=== PATIENT | male | born 2000 | race Caucasian/White ===

== ENCOUNTER 2020-03-17 07:59 | Outpatient (CLI) | payer SELFPAY | END 2020-03-17 08:00 | disposition home or self-care (01) | LOC: WOUND 08:08 | PROVIDERS: Visit Provider Nurse Practitioner Family | DX: T23.251A Burn of second degree of right palm, initial encounter (principal); X08.8XXA Exposure to other specified smoke, fire and flames, initial encounter | CPT/HCPCS: 11042; 87070; 87077; 87176; 87186; 87205; G0463 ==

== ENCOUNTER 2020-03-24 08:26 | Outpatient (CLI) | payer SELFPAY | END 2020-03-24 08:27 | disposition home or self-care (01) | LOC: WOUND 08:27 | PROVIDERS: Visit Provider Nurse Practitioner Family | DX: T23.351A Burn of third degree of right palm, initial encounter (principal); X08.8XXA Exposure to other specified smoke, fire and flames, initial encounter; Y93.89 Activity, other specified | CPT/HCPCS: 11042 ==

== ENCOUNTER 2020-03-31 08:45 | Outpatient (CLI) | payer SELFPAY | END 2020-03-31 08:46 | disposition home or self-care (01) | LOC: WOUND 08:47 | PROVIDERS: Visit Provider Nurse Practitioner Family | DX: Z09 Encounter for follow-up examination after completed treatment for conditions other than malignant neoplasm (principal) | CPT/HCPCS: 99212 ==

== ENCOUNTER 2024-01-25 02:35 | Emergency (ER) | payer OTHER, SELFPAY ==
[2024-01-25 02:42] VITALS: BP 126/88; PULSE 71; RESP 20; TEMP 36.6; O2SAT 98; BMI 20.5
[2024-01-25 02:57] VITALS: BP 126/88; PULSE 80; RESP 18; O2SAT 98
--- NOTE | 2024-01-25 02:57 | XRR_ITS ---
PROCEDURE INFORMATION: Exam: XR Chest Exam date and time: 01/25/2024 3:06 AM Age: 23 years old Clinical indication: Patient HX: C/O anterior chest wall pain; Additional info: Rib pain TECHNIQUE: Imaging protocol: Radiologic exam of the chest. Views: 1 view. COMPARISON: No relevant prior studies available. FINDINGS: Lungs: No consolidation. Pleural spaces: No sizable pleural effusion or pneumothorax. Heart/Mediastinum: No cardiomegaly. Bones/joints: Unremarkable. XR/XR chest 1V portable [id number] IMPRESSION: No acute intrathoracic findings.
--- NOTE | 2024-01-25 03:57 | ED_ITS ---
HPI - Chest Pain General: Chief Complaint: Chest Pain Stated Complaint: Chest Pains Time Seen by Provider: 01/25/24 02:57 History of Present Illness: 23-year-old male presents emergency depa rtment stating that he has burning type chest pain that started last night. He states he also felt like his heart was beating very fast. He does appear to be very anxious upon presentation to the emergency department. He states he drinks multiple energy drinks throughout the day to stay awake. And that he also smokes marijuana. He does endorse an intermittent dry cough. He does not appear to be short of breath. He states his chest discomfort is mostly lateral to the mediastinum bilaterally. Review of Systems General: Reports: 10 or more systems reviewed and unremarkable except in HPI and below Card: Reports: chest pain Resp: Reports: non-productive cough COUNT INCLUDES THE [facility] ED PFSH: Medical History (Updated 01/25/24 @ 04:14 by Fernando Cobb MD) Psychiatric care Social History (Updated 03/14/20 @ 16:00 by Michela North LPN) Smoking and tobacco/nicotine status: former use of tobacco/nicotine Physical Exam Narrative: EXAM NARRATIVE: General: Alert, no acute distress. Skin: Warm, dry, Intact. Head: Normocephalic, atraumatic. Neck: Supple, trachea midline. Eye: Extraocular movements are intact. PERRLA Ears, nose, mouth and throat: mucosa moist. Cardiovascular: Regular, Normal peripheral perfusion. Respiratory: Bronchovesicular breath sounds, respirations are non-labored, breath sounds are equal, Symmetrical chest wall expansion. Gastrointestinal: Soft, Nontender, Non distended, Normal bowel sounds. Musculoskeletal: Normal ROM, no deformity. Neurological: Alert and oriented, No focal neurological deficit observed. Psychiatric: Cooperative, appropriate mood & affect. Course Vital Signs: Vital signs: Vital Signs Temperature 97.9 F 01/25/24 02:42 Pulse Rate 80 01/25/24 02:57 Respiratory Rate 18 01/25/24 02:57 Blood Pressure 126/88 01/25/24 02:57 Pulse Oximetry 98 01/25/24 02:57 Oxygen Delivery Me thod Room Air 01/25/24 02:57 MDM - Chest Pain Medical Decision Making Physical exam completed and documented I did obtain a chest x-ray as well as a twelve-lead EKG. Had extensive discussion with the patient regarding his marijuana usage. Did advise him that the smoke from the marijuana cigarettes that he is smoking could easily irritate his lung and causes bronchitis. I also advised the patient that the energy drinks that he is drinking a very unhealthy and can cause him to be very anxious and appear to be short of breath. I will discharge patient home and recommend he follow-up with his primary care provider Differential diagnosis includes bronchitis, pneumonia, anxiety, Medical Records I reviewed the patient's medical records. All radiology interpretation(s) finalized by discharge EKG Data EKG 1: Interpretation: Twelve-lead EKG obtained at 0 243 and reviewed at 0 245 demonstrates sinus rhythm with sinus arrhythmia. Ventricular rate 74, NE interval 147, QRS duration 94, QT 350, QTc [address] elevation or depression to demonstrate acute ischemia or infarction at present. Discharge Plan Discharge Patient Disposition: Home Clinical Impression: Atypical chest pain Acute bronchitis Qualifiers: Bronchitis organism: unspecified organism Qualified Code(s): J20.9 - Acute bronchitis, unspecified Condition: Stable Prescriptions: New prednisone 20 mg tablet 20 mg PO DAILY 5 Days Qty: 5 0RF No Action No Known Home Medications sulfamethoxazole-trimethoprim [Bactrim] 400-80 mg tablet 1 tab PO BID 7 Days Qty: 14 0RF Discharge Orders: Discharge ED (Routine); Ordered 01/25/24 Ordered By: Fernando Cobb Discharge Diet: Usual diet Discharge Activity: Resume usual activity Patient Instructions: Opioid Safety, Pain Management Activity Restrictions/Additional Instructions: Activity Restrictions/Additional Instructions: Thank you for choosing [facility] for your healthcare needs today. Please realize that you were seen in the Emergency Department and that we are providing you with an emergency medical screening exam and this may not be a complete and all inclusive of all the testing and or medical work-up that you may need to determine your ailment or severity of your illness. It is very important that you follow-up as instructed with your Primary care provider or Specialist for additional evaluation and to discuss your medical treatment plan. Coding Level of Care Code ED Professor Of Historical Theology for Sam Oropeza
[2024-01-25 04:33] VITALS: BP 101/83; PULSE 82; RESP 16; O2SAT 100
== END 2024-01-25 04:30 | disposition home or self-care (01) ==
PROVIDERS: Emergency Provider Internal Medicine
DX: R07.89 Other chest pain (principal); J20.9 Acute bronchitis, unspecified; Z87.891 Personal history of nicotine dependence
CPT/HCPCS: 71045; 99283

== ENCOUNTER 2024-02-07 10:01 | Emergency (ER) | payer OTHER, SELFPAY ==
[2024-02-07 10:08] VITALS: BP 111/67; PULSE 69; RESP 17; TEMP 36.6; O2SAT 98; BMI 22.0
--- NOTE | 2024-02-07 10:28 | XR_ITS ---
WS: [id number] XR chest 2V* [id number] REASON FOR EXAM: chest pain FINDINGS: The heart and the mediastinum are within normal limits. Calcified granulomas disease in both hemithoraces. No acute pulmonary parenchymal or pleural abnormality is noted. Bony thorax intact without significant abnormality. XR/XR chest 2V* [id number] IMPRESSION: No acute chest abnormality.
--- NOTE | 2024-02-07 11:25 | ED_ITS ---
HPI - Chest Pain General: Chief Complaint: Chest Pain Stated Complaint: CP Time Seen by Provider: 02/07/24 11:22 History of Present Illness: 23-year-[facility]. This is been present for couple weeks now and intermittent. He had been seen in the emergency room for it almost 2 weeks ago and had taken some steroid which helped for couple days but then it came back. Hurts with palpation, movement and deep breathing. Thinks it might just be related to his work. No cough. No fevers. No shortness of breath. No nausea or vomiting. No abdominal pain. Review of Systems Narrative: Constitutional symptoms: Negative except as documented in HPI. Skin symptoms: Negative except as documented in HPI. Eye symptoms: Negative except as documented in HPI. ENMT symptoms: Negative except as documented in HPI. Respiratory symptoms: Negative except as documented in HPI. Cardiovascular symptoms: Negative except as documented in HPI. Gastrointestinal symptoms: Negative except as documented in HPI. Genitourinary symptoms: Negative except as documented in HPI. Musculoskeletal symptoms: Negative except as documented in HPI. Neurologic symptoms: Negative except as documented in HPI. Psychiatric symptoms: Negative except as documented in HPI. Endocrine symptoms: Negative except as documented in HPI. [facility] ED PFSH: Medical History (Updated 02/07/24 @ 11:28 by Malia Pruitt MD) Psychiatric care Social History (Updated 03/14/20 @ 16:00 by Michela North LPN) Smoking and tobacco/nicotine status: former use of tobacco/nicotine Physical Exam Narrative: EXAM NARRATIVE: General: Alert, no acute distress. Skin: Warm, dry. Head: Normocephalic, atraumatic. Neck: Supple, trachea midline. Eye: Extraocular movements are intact. Ears, nose, mouth and throat: mucosa moist. Cardiovascular: Regular, Normal peripheral perfusion. Some tenderness to palpation over the left chest wall Respiratory: Lungs are clear to auscultation, respirations are non-labored, breath sounds are equal, Symmetrical chest wall expansion. Gastrointestinal: Soft, Nontender, Non distended, Normal bowel sounds. Musculoskeletal: Normal ROM, no deformity. Neurological: Alert and oriented, No focal neurological deficit observed. Psychiatric: Cooperative, appropriate mood & affect. Course Vital Signs: Vital signs: Vital Signs Temperature 97.8 F 02/07/24 10:08 Pulse Rate 69 02/07/24 10:08 Respiratory Rate 17 02/07/24 10:08 Blood Pressure 111/67 02/07/24 10:08 Pulse Oximetry 98 02/07/24 10:08 Oxygen Delivery Me thod Room Air 02/07/24 10:08 MDM - Chest Pain Medical Decision Making Medical decision making: Differential diagnosis including but not limited to and based on the above HPI, review of systems and physical exam: In this young patient with chest pain that is tender to palpation and with movement this is likely musculoskeletal. A chest x-ray was repeated to be sure he does not have any pneumonia or anything like that. Orders placed to evaluate differential diagnosis based on the above differential, HPI and physical exam Chest x-ray: No acute process. No infiltrate. No pneumothorax. No cardi omegaly. This was reviewed and interpreted by myself the ER physician. I reviewed the patient's medical record. Assessment and plan: Musculoskeletal chest pain/costochondritis - Discharged home - Discussed plan with patient. Answered any questions. - Evaluation and treatment of this problem were appropriate in the emergency setting. Lab Data Radiology Impressions Chest X-Ray 02/07/24 10:28 IMPRESSION: No acute chest abnormality. All radiology interpretation(s) finalized by discharge Discharge Plan Discharge Patient Disposition: Home Clinical Impression: Costalchondritis Condition: Stable Prescriptions: New diclofenac sodium 50 mg tablet,delayed release (DR/EC) 50 mg PO Q12H Qty: 20 0RF No Action sulfamethoxazole-trimethoprim [Bactrim] 400-80 mg tablet 1 tab PO BID 7 Days Qty: 14 0RF Discharge Orders: Discharge ED (Routine); Ordered 02/07/24 Ordered By: Malia Pruitt Discharge Diet: Usual diet Discharge Activity: Increase activity as tolerated Patient Instructions: Costochondritis (ED) Activity Restrictions/Additional Instructions: You have been screened and evaluated and felt safe for discharge. Health conditions do change or evolve sometimes and as such it is important that you follow up with your Primary Doctor to be re checked, 3-5 days is a general good time frame for follow up. You are always welcome to return to the ED for re assessment if your symptoms are worsening or you have new concerns Coding Level of Care Code ED Metal Shaping Machine Operator for Sam Oropeza
[2024-02-07 11:46] VITALS: BP 114/64; PULSE 67; RESP 16; TEMP 36.6; O2SAT 99
== END 2024-02-07 11:47 | disposition home or self-care (01) ==
PROVIDERS: Emergency Provider Emergency Medicine
DX: M94.0 Chondrocostal junction syndrome [Tietze] (principal); Z87.891 Personal history of nicotine dependence
CPT/HCPCS: 71046; 99283